=== PATIENT | female | born 1955 | race Caucasian/White ===

== ENCOUNTER 2017-06-03 15:58 | Inpatient (IN) | payer MEDICAID, OTHER ==
[2017-06-03 15:58] VITALS: BMI 26.0
[2017-06-03] MEDS ORDERED: Sodium Chloride 0.9% 1,000 ML IV STA (17:01)
--- NOTE | 2017-06-03 17:03 | ED PDOC ---
HPI: Abdomen Time Seen by Provider: 06/03/17 16:40 Chief Complaint (Nursing): Abdominal Pain Chief Complaint (Provider): Diarrhea History Per: Patient Additional Complaint(s): Pt reports nonbloody diarrhea and crampy abdominal pain X 2 days, may have eaten something bad. Denies fever, nausea, vomiting, urinary symptoms. Past Medical History Reviewed: Nursing Documentation, Vital Signs Vital Signs: Last Vital Signs Temp 98.1 F 06/05/17 08:17 Pulse 55 L 06/05/17 08:17 Resp 20 06/05/17 08:17 BP 117/68 06/05/17 08:17 Pulse Ox 99 06/05/17 08:17 - Medical History PMH: Gastritis, Chronic Kidney Disease - Surgical History Surgical History: Cholecystectomy - Family History Family History: States: Unknown Family Hx - Social History Current smoker - smoking cessation education provided: No Alcohol: None - Immunization History Hx Influenza Vaccination: No - Home Medications Home Medications: Ambulatory Orders Medication Instructions Recorded Acetaminophen [Tylenol 325mg tab] 650 mg PO Q6 PRN tab 06/05/17 Ciprofloxacin HCl [Cipro] 500 mg PO BID #14 tablet 06/05/17 Metronidazole [Flagyl] 500 mg PO TID #30 tablet 06/05/17 - Allergies Allergies/Adverse Reactions: Allergies Allergy/AdvReac Type Severity Reaction Status Date / Time No Known Allergies Allergy Verified 06/03/17 16:25 Review of Systems Constitutional: Negative for: Fever, Chills Cardiovascular: Negative for: Chest Pain, Palpitations Respiratory: Negative for: Cough, Shortness of Breath Gastrointestinal: Positive for: Abdominal Pain, Diarrhea. Negative for: Nausea , Vomiting, Constipation, Melena, Hematochezia, Hematemesis Genitourinary Female: Negative for: Dysuria, Hematuria, Vaginal Discharge, Vaginal Bleeding Musculoskeletal: Negative for: Back Pain Skin: Negative for: Rash, Lesions Neurological: Negative for: Headache, Dizziness Physical Exam - Reviewed Nursing Documentation Reviewed: Yes Vital Signs Reviewed: Yes - Physical Exam Appears: Positive for: Well, No Acute Distress Skin: Positive for: Normal Color, Warm, Dry Eye Exam: Positive for: Normal appearance, EOMI, PERRL Cardiovascular/Chest: Positive for: Regular Rate, Rhythm Respiratory: Positive for: Normal Breath Sounds Gastrointestinal/Abdominal: Positive for: Bowel Sounds, Soft, Tenderness (LUQ/ LLQ). Negative for: Distended, Guarding, Rebound Back: Positive for: Normal Inspection. Negative for: L CVA Tenderness, R CVA Tenderness Extremity: Positive for: Normal ROM Neurologic/Psych: Positive for: Alert, Oriented - Laboratory Results Result Diagrams: 06/04/17 06:15 06/04/17 06:15 - ECG Interpretation Of ECG: NSR @ 68, no ST-T changes. O2 Sat by Pulse Oximetry: 98 Pulse Ox Interpretation: Normal Medical Decision Making Medical Decision Makin yo female with abdominal cramping and diarrhea. - labs - EKG - CT abd/pelvis - IVF - Bentyl Accession No. 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 no. Patient Name: DMOINGA COTTON Pt. Address: [address] [place] [address] Med. Rec #: [id number] [place] [address]: Joanna COLVIN, Whitney Colon Pt CELL Order Location: [facility] : 1955 Female Age: 62 Order #: [id number] Reason for exam: L sided abd pain, diarrhea CT Scan ABD PELVIS IV CONTRAST ONLY Exam Date: 06/03/17 This imaging exam was performed at [facility] EXAM: CT Abdomen and Pelvis With Intravenous Contrast EXAM DATE/TIME: 06/03/2017 5:00 PM CLINICAL HISTORY: 62 years old, female; Pain; Abdominal pain; Localized; Left; Prior surgery; Surgery date: 6+ months; Surgery type: Gb removed; Additional info: L sided abd pain, diarrhea. Pain since yesterday TECHNIQUE: Axial computed tomography images of the abdomen and pelvis with intravenous contrast. All CT scans at this facility use one or more dose reduction techniques, viz.: automated exposure control; ma/kV adjustment per patient size (including targeted exams where dose is matched to indication; i.e. head); or iterative reconstruction technique. Coronal and sagittal reformatted images were created and reviewed. CONTRAST: 90 mL of omnipaque 300 administered intravenously. COMPARISON: There are no prior studies for comparison. FINDINGS: Lower thorax: Heart size is normal. There is a small hiatal hernia. There is dependent atelectasis at the lung bases. ABDOMEN: Liver: There is fatty infiltration of the liver. Gallbladder and bile ducts: Gallbladder is absent. There is prominence of the common duct. Pancreas: Pancreas is mildly atrophic. Spleen: There is a small low attenuation lesion in the spleen difficult to characterize.There is an accessory spleen in the left upper quadrant. Adrenals: unremarkable Kidneys and ureters: There are bilateral low-attenuation renal lesions too small to accurately characterize.There is no pelvocaliectasis or ureterectasis. Stomach and bowel: Stomach is incompletely distended. Rotation is normal. There is duodenal and proximal jejunal fold thickening. There is ileal wall thickening with wall and mucosal enhancement. There is only mild terminal ileal wall thickening. Appendix is unremarkable. There is mild cecal wall thickening. There is fatty infiltration of the ascending colonic wall. There is mild prominence of the transverse and descending colon morgan. There is sigmoid wall thickening. Appendix: See stomach and bowel PELVIS: Bladder: Bladder is almost completely empty. Reproductive: Uterus and adnexal structures are unremarkable. ABDOMEN and PELVIS: Intraperitoneal space: There is a moderate amount of free fluid in the pelvis. There is no free fluid in the upper abdomen.There is no free air. Bones/joints: There are scattered bone islands.There are degenerative changes in the osseus structures. Soft tissues: There is a small fat containing umbilical hernia. Vasculature: There are vascular calcifications. Lymph nodes: There is no pathologic adenopathy. IMPRESSION: Enterocolitis; pelvic ascites possibly due to to inflammatory bowel disease; prominent common duct status post cholecystectomy; fatty liver Additional nonemergent findings as described above. Dictated By: Jose Christensen MD, MD Dictated Date/Time: 06/03/171912 Signed By: Jose Christensen MD Date Signed: 1912 Transcribed By: YAJAIRA Transcribe Date/Time : 06/03/171912 DREAD/RUPERT Disposition - Clinical Impression Clinical Impression: Enterocolitis - Patient ED Disposition Is Patient to be Admitted: Yes - Disposition Disposition Time: 20:32 Condition: STABLE - Pt Status Changed To: Hospital Disposition Of: Inpatient - Admit Certification Admit to Inpatient:: After my assessment, the patient will require hospitalization for at least two midnights. This is because of the severity of symptoms shown, intensity of services needed, and/or the medical risk in this patient being treated as an outpatient. - POA Present On Arrival: None
[2017-06-03 17:37] LABS: BASO % 0.4 % (0.0-2.0); EOS # 0.2 K/uL (0.0-0.7); EOS % 1.5 % (0.0-4.0); HEMOGLOBIN 12.9 g/dL (12.0-16.0); LYMPH # 1.6 K/uL (1.0-4.3); LYMPH % 15.7 % (20.0-40.0); MEAN CELL VOLUME 82.2 fl (81.0-99.0); MEAN CORPUSCULAR HEMOGLOBIN 26.9 pg (27.0-31.0); MEAN CORPUSCULAR HGB CONC 32.8 g/dL (33.0-37.0); MEAN PLATELET VOLUME 7.6 fl (7.2-11.7); MONO # 0.7 K/uL (0.0-0.8); MONO % 6.3 % (0.0-10.0); NEUT % 76.1 % (50.0-75.0); NRBC % 0.1 % (0.0-0.0); RBC 4.81 Mil/uL (3.80-5.20); RED CELL DISTRIBUTION WIDTH 14.4 % (11.5-14.5); WHITE BLOOD COUNT 10.5 K/uL (4.8-10.8)
[2017-06-03 17:54] LABS: ALB/GLOB RATIO 1.1 (1.0-2.1); ALBUMIN 4.1 g/dL (3.5-5.0); ALT/SGPT 41 U/L (9-52); AST/SGOT 39 U/L (14-36); BLOOD UREA NITROGEN 11 mg/dl (7-17); CALCIUM 8.8 mg/dL (8.4-10.2); GFR AFRICAN-AMERICAN > 60; GFR NON-AFRICAN AMERICAN > 60; LIPASE 36 U/L (23-300)
[2017-06-03 18:03] LABS: PARTIAL THROMBOPLASTIN TIME 28.4 Seconds (25.6-37.1); PROTHROMBIN TIME 10.7 Seconds (9.8-13.1)
[2017-06-03 18:11] LABS: SQUAMOUS EPITHIAL 1 /hpf (0-5); URINE BILIRUBIN NEGATIVE (NEGATIVE); URINE BLOOD NEGATIVE (NEGATIVE); URINE CLARITY SLIGHTY-CLOUDY (Clear); URINE COLOR YELLOW (YELLOW); URINE GLUCOSE (UA) NEG (Normal); URINE LEUKOCYTE ESTERASE NEG Leu/uL (Negative); URINE PROTEIN NEGATIVE (NEGATIVE); URINE UROBILINOGEN 0.2-1.0 mg/dL (0.2-1.0)
[2017-06-03] MEDS ORDERED: Iohexol 300 100 ML IJ ONE (18:17)
--- NOTE | 2017-06-03 19:13 | CT ---
EXAM: CT Abdomen and Pelvis With Intravenous Contrast EXAM DATE/TIME: 06/03/2017 5:00 PM CLINICAL HISTORY: 62 years old, female; Pain; Abdominal pain; Localized; Left; Prior surgery; Surgery date: 6+ months; Surgery type: Gb removed; Additional info: L sided abd pain, diarrhea. Pain since yesterday TECHNIQUE: Axial computed tomography images of the abdomen and pelvis with intravenous contrast. All CT scans at this facility use one or more dose reduction techniques, viz.: automated exposure control; ma/kV adjustment per patient size (including targeted exams where dose is matched to indication; i.e. head); or iterative reconstruction technique. Coronal and sagittal reformatted images were created and reviewed. CONTRAST: 90 mL of omnipaque 300 administered intravenously. COMPARISON: There are no prior studies for comparison. FINDINGS: Lower thorax: Heart size is normal. There is a small hiatal hernia. There is dependent atelectasis at the lung bases. ABDOMEN: Liver: There is fatty infiltration of the liver. Gallbladder and bile ducts: Gallbladder is absent. There is prominence of the common duct. Pancreas: Pancreas is mildly atrophic. Spleen: There is a small low attenuation lesion in the spleen difficult to characterize.There is an accessory spleen in the left upper quadrant. Adrenals: unremarkable Kidneys and ureters: There are bilateral low-attenuation renal lesions too small to accurately characterize.There is no pelvocaliectasis or ureterectasis. Stomach and bowel: Stomach is incompletely distended. Rotation is normal. There is duodenal and proximal jejunal fold thickening. There is ileal wall thickening with wall and mucosal enhancement. There is only mild terminal ileal wall thickening. Appendix is unremarkable. There is mild cecal wall thickening. There is fatty infiltration of the ascending colonic wall. There is mild prominence of the transverse and descending colon morgan. There is sigmoid wall thickening. Appendix: See stomach and bowel PELVIS: Bladder: Bladder is almost completely empty. Reproductive: Uterus and adnexal structures are unremarkable. ABDOMEN and PELVIS: Intraperitoneal space: There is a moderate amount of free fluid in the pelvis. There is no free fluid in the upper abdomen.There is no free air. Bones/joints: There are scattered bone islands.There are degenerative changes in the osseus structures. Soft tissues: There is a small fat containing umbilical hernia. Vasculature: There are vascular calcifications. Lymph nodes: There is no pathologic adenopathy. IMPRESSION: Enterocolitis; pelvic ascites possibly due to to inflammatory bowel disease; prominent common duct status post cholecystectomy; fatty liver Additional nonemergent findings as described above.
[2017-06-03] MEDS ORDERED: Ciprofloxacin 400mg/200ml D5W 400 MG/200 ML BAG IV STA (19:44)
[2017-06-03] MEDS ORDERED: Oxycodone/Acetaminophen 5/325 mg Tab PO PRN (20:57)
[2017-06-03] MEDS ORDERED: metroNIDAZOLE 500mg/100ml NS 100 ML IVPB SCH (21:00)
--- NOTE | 2017-06-03 21:06 | CP.PCM.HP ---
History of Present Illness - History of Present Illness History of Present Illness: CC: abd pain, diarrhea HPI: 62 y/o female with gastritis who comes in with 2 days of abdominal pain and now several episodes of nb diarrhea today. Patient denies any unusual food exposure or travel. No close contacts have been sick. She has not been on any abx. 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 Denies f/c. Denies n/v. MHx: gastritis SHx: Cholecystectomy Allergies: NKDA Medications: Per med rec Family Hx: Reviewed, no relevant findings Social Hx: Lives with family, no tobacco, no EtOH use Surrogate: Son, contract info in chart Present on Admission - Present on Admission Any Indicators Present on Admission: No Past Patient History - Past Medical History & Family History Past Medical History?: Yes - Past Social History Alcohol: None - CARDIAC Hx Hypercholesterolemia: Yes - PULMONARY Hx Respiratory Disorders: No - NEUROLOGICAL Hx Neurological Disorder: No - HEENT Hx HEENT Problems: No - RENAL Hx Chronic Kidney Disease: Yes - ENDOCRINE/METABOLIC Hx Endocrine Disorders: No - HEMATOLOGICAL/ONCOLOGICAL Hx Blood Disorders: No - INTEGUMENTARY Hx Dermatological Problems: No - MUSCULOSKELETAL/RHEUMATOLOGICAL Hx Musculoskeletal Disorders: No - GASTROINTESTINAL Hx Gastritis: Yes - GENITOURINARY/GYNECOLOGICAL Hx Genitourinary Disorders: Yes Other/Comment: HX: CYST LEFT OVARY - PSYCHIATRIC Hx Psychophysiologic Disorder: No Hx Substance Use: No - SURGICAL HISTORY Hx Cholecystectomy: Yes - ANESTHESIA Hx Anesthesia: Yes Hx Anesthesia Reactions: No Hx Malignant Hyperthermia: No Meds Allergies/Adverse Reactions: Allergies Allergy/AdvReac Type Severity Reaction Status Date / Time No Known Allergies Allergy Verified 06/03/17 16:25 Physical Exam - Constitutional Appears: No Acute Distress - Head Exam Head Exam: ATRAUMATIC, NORMOCEPHALIC - Eye Exam Eye Exam: EOMI, PERRL - ENT Exam ENT Exam: Mucous Membranes Moist - Neck Exam Neck exam: Positive for: Full Rom - Respiratory Exam Respiratory Exam: Clear to Auscultation Bilateral, NORMAL BREATHING PATTERN - Cardiovascular Exam Cardiovascular Exam: REGULAR RHYTHM, +S1, +S2 - GI/Abdominal Exam GI & Abdominal Exam: Normal Bowel Sounds, Soft, Tenderness - Extremities Exam Extremities exam: Positive for: full ROM, normal inspection - Neurological Exam Neurological exam: Alert, CN II-XII Intact, Oriented x3 - Psychiatric Exam Psychiatric exam: Normal Affect, Normal Mood - Skin Skin Exam: Dry, Warm Results - Vital Signs Recent Vital Signs: Last Vital Signs Temp 98.2 F 06/03/17 16:26 Pulse 77 06/03/17 16:26 Resp 16 06/03/17 16:26 BP 133/62 06/03/17 16:26 Pulse Ox 98 06/03/17 20:32 - Labs Result Diagrams: 06/03/17 17:31 06/03/17 17:31 Labs: Laboratory Results - last 24 hr 06/03/17 06/03/17 06/03/17 17:31 17:31 17:31 WBC 10.5 RBC 4.81 Hgb 12.9 Hct 39.5 MCV 82.2 MCH 26.9 L MCHC 32.8 L RDW 14.4 Plt Count 330 MPV 7.6 Neut % (Auto) 76.1 H Lymph % (Auto) 15.7 L [place] % (Auto) 6.3 Eos % (Auto) 1.5 Baso % (Auto) 0.4 Neut # (Auto) 8.0 H Lymph # (Auto) 1.6 [place] # (Auto) 0.7 Eos # (Auto) 0.2 Baso # (Auto) 0.0 PT 10.7 INR 1.0 APTT 28.4 Sodium 142 Potassium 3.8 Chloride 106 Carbon Dioxide 23 Anion Gap 17 BUN 11 Creatinine 0.5 L Est GFR ( Amer) > 60 Est GFR (Non-Af Amer) > 60 Random Glucose 87 Calcium 8.8 Total Bilirubin 0.5 AST 39 H ALT 41 Alkaline Phosphatase 74 Total Protein 7.6 Albumin 4.1 Globulin 3.6 Albumin/Globulin Ratio 1.1 Lipase 36 Urine Color Urine Clarity Urine pH Ur Specific [place] Urine Protein Urine Glucose (UA) Urine Ketones Urine Blood Urine Nitrate Urine Bilirubin Urine Urobilinogen Ur Leukocyte Esterase Urine RBC (Auto) Urine Microscopic WBC Ur Squamous Epith Cells 06/03/17 17:58 WBC RBC Hgb Hct MCV MCH MCHC RDW Plt Count MPV Neut % (Auto) Lymph % (Auto) [place] % (Auto) Eos % (Auto) Baso % (Auto) Neut # (Auto) Lymph # (Auto) [place] # (Auto) Eos # (Auto) Baso # (Auto) PT INR APTT Sodium Potassium Chloride Carbon Dioxide Anion Gap BUN Creatinine Est GFR ( Amer) Est GFR (Non-Af Amer) Random Glucose Calcium Total Bilirubin AST ALT Alkaline Phosphatase Total Protein Albumin Globulin Albumin/Globulin Ratio Lipase Urine Color Yellow Urine Clarity Slighty-cloudy Urine pH 5.0 Ur Specific [place] 1.026 Urine Protein Negative Urine Glucose (UA) Neg Urine Ketones Negative Urine Blood Negative Urine Nitrate Negative Urine Bilirubin Negative Urine Urobilinogen 0.2-1.0 Ur Leukocyte Esterase Neg Urine RBC (Auto) 3 Urine Microscopic WBC 1 Ur Squamous Epith Cells 1 - Imaging and Cardiology CT scan - abdomen Status: Image reviewed by me, Report reviewed by me (enterocolitis) Assessment & Plan (1) Enterocolitis Assessment and Plan: 62 y/o female who works in this hospital presenting with abd pain and diarrhea. -Clear liquids -Continue cipro/flagyl IV -Would get C diff given that patient has exposure here in the hospital -PRN pain medication -SCD for dvt ppx Status: Acute
[2017-06-03] MEDS ORDERED: Ciprofloxacin 400mg/200ml D5W 400 MG/200 ML BAG IVPB ONE (21:38)
[2017-06-03] MEDS: metroNIDAZOLE 500mg/100ml NS 100 ML IVPB SCH (22:48)
[2017-06-04] MEDS: metroNIDAZOLE 500mg/100ml NS 100 ML IVPB SCH ×3 (06:18→22:57)
[2017-06-04 06:45] LABS: BASO % 0.1 % (0.0-2.0); EOS # 0.1 K/uL (0.0-0.7); EOS % 1.7 % (0.0-4.0); HEMOGLOBIN 11.5 g/dL (12.0-16.0); LYMPH % 34.5 % (20.0-40.0); MEAN CORPUSCULAR HEMOGLOBIN 27.2 pg (27.0-31.0); MEAN CORPUSCULAR HGB CONC 33.5 g/dL (33.0-37.0); MEAN PLATELET VOLUME 7.6 fl (7.2-11.7); MONO # 0.4 K/uL (0.0-0.8); MONO % 7.2 % (0.0-10.0); NEUT # 3.3 K/uL (1.8-7.0); NEUT % 56.5 % (50.0-75.0); NRBC % 0.1 % (0.0-0.0); RBC 4.23 Mil/uL (3.80-5.20); RED CELL DISTRIBUTION WIDTH 14.4 % (11.5-14.5); WHITE BLOOD COUNT 5.9 K/uL (4.8-10.8)
[2017-06-04 07:00] LABS: BLOOD UREA NITROGEN 7 mg/dl (7-17); GFR AFRICAN-AMERICAN > 60; GFR NON-AFRICAN AMERICAN > 60
[2017-06-04] MEDS: Pantoprazole 40 mg EC Tab PO SCH (08:56)
--- NOTE | 2017-06-04 09:52 | CARD ---
APPROVED REPORT EKG Measurement Heart [id number] <Conclusion> Normal sinus rhythm Normal ECG
[2017-06-04] MEDS: Ciprofloxacin 400mg/200ml D5W 400 MG/200 ML BAG IVPB SCH ×2 (10:30→20:51)
--- NOTE | 2017-06-04 11:18 | CP.PCM.PN ---
Subjective - Date & Time of Evaluation Date of Evaluation: 06/04/17 Time of Evaluation: 11:00 - Subjective Subjective: No fever still with diarrhea, worse after she had some Liquid diet 4x diarrhea this am , liquid + lower abd pain denies N/V no CP no SOB Objective - Vital Signs/Intake and Output Vital Signs (last 24 hours): Temp Pulse Resp BP Pulse Ox 98.4 F 87 18 95/55 L 98 06/04/17 08:05 06/04/17 08:05 06/04/17 08:05 06/04/17 08:05 06/04/17 08:05 - Medications Medications: Current Medications Acetaminophen (Tylenol 325mg Tab) 650 mg PO Q6 PRN PRN Reason: Pain, Mild (1-3) Acetaminophen (Tylenol 325mg Tab) 650 mg PO Q6 PRN PRN Reason: Fever >100.4 F Ciprofloxacin (Cipro 400mg/200ml Dsw) 400 mg in 200 mls @ 200 mls/hr IVPB Q12 ANNALISA PRN Reason: Protocol Last Admin: 06/04/17 10:30 Dose: 200 mls/hr Metronidazole (Flagyl 500mg/100ml Ns) 100 mls @ 100 mls/hr IVPB Q8H ANNALISA PRN Reason: Protocol Last Admin: 06/04/17 06:18 Dose: 100 mls/hr Morphine Sulfate (Morphine) 1 mg IVP Q4 PRN PRN Reason: Pain, severe (8-10) Oxycodone/Acetaminophen (Percocet 5/325 Mg Tab) 1 tab PO Q4 PRN PRN Reason: Pain, moderate (4-7) Stop: 06/06/17 20:58 Pantoprazole Sodium (Protonix Ec Tab) 40 mg PO DAILY [facility] Last Admin: 06/04/17 08:56 Dose: 40 mg - Labs Labs: 06/04/17 06:15 06/04/17 06:15 PT 10.7 Seconds (9.8-13.1) 06/03/17 17:31 INR 1.0 (0.9-1.2) 06/03/17 17:31 APTT 28.4 Seconds (25.6-37.1) 06/03/17 17:31 - Constitutional Appears: No Acute Distress - Head Exam Head Exam: ATRAUMATIC, NORMAL INSPECTION, NORMOCEPHALIC - Eye Exam Eye Exam: EOMI, Normal appearance, PERRL Pupil Exam: NORMAL ACCOMODATION - ENT Exam ENT Exam: Mucous Membranes Moist, Normal External Ear Exam - Neck Exam Neck Exam: Full ROM. absent: Meningismus - Respiratory Exam Respiratory Exam: NORMAL BREATHING PATTERN. absent: Respiratory Distress - Cardiovascular Exam Cardiovascular Exam: REGULAR RHYTHM, +S1, +S2 - GI/Abdominal Exam GI & Abdominal Exam: Soft, Normal Bowel Sounds. absent: Tenderness - Extremities Exam Extremities Exam: Full ROM, Normal Capillary Refill. absent: Calf Tenderness, Pedal Edema - Back Exam Back Exam: Full ROM. absent: CVA tenderness (L), CVA tenderness (R) - Neurological Exam Neurological Exam: Alert, Awake, CN II-XII Intact, Oriented x3 Neuro motor strength exam: Left Upper Extremity: 5, Right Upper Extremity: 5, Left Lower Extremity: 5, Right Lower Extremity: 5 - Psychiatric Exam Psychiatric exam: Normal Affect, Normal Mood - Skin Skin Exam: Dry, Normal Color, Warm Assessment and Plan (1) Enterocolitis Status: Acute - Assessment and Plan (Free Text) Assessment: 1. Acute Enterocolitis - still with diarrhea - cont IVF hydration - cont IV Cipro and Flagyl -Stool work up - c/s, WBC, C diff, O/P 2. DVT proph - Lovenox
[2017-06-04] MEDS: Lactated Ringer's 1,000 ML IV SCH ×2 (14:19→21:30)
[2017-06-05] MEDS: Lactated Ringer's 1,000 ML IV SCH (05:42)
[2017-06-05] MEDS: metroNIDAZOLE 500mg/100ml NS 100 ML IVPB SCH (06:45)
[2017-06-05 08:18] VITALS: BP 117/68; PULSE 55; RESP 20; TEMP 98.1
[2017-06-05] MEDS: Ciprofloxacin 400mg/200ml D5W 400 MG/200 ML BAG IVPB SCH (09:00)
[2017-06-05] MEDS: Pantoprazole 40 mg EC Tab PO SCH (09:01)
--- NOTE | 2017-06-05 15:01 | CP.PCM.DIS ---
Provider - Provider Date of Admission: 06/03/17 20:32 Attending physician: Jared Richardson MD Time Spent in preparation of Discharge (in minutes): 30 Diagnosis - Discharge Diagnosis (1) Enterocolitis Status: Acute Hospital Course - Lab Results Lab Results: Micro Results 06/04/17 10:50 Stool Ova and Parasite Concentrate Exam - Final Most Recent Lab Values WBC 5.9 K/uL (4.8-10.8) 06/04/17 06:15 RBC 4.23 Mil/uL (3.80-5.20) 06/04/17 06:15 Hgb 11.5 g/dL (12.0-16.0) L 06/04/17 06:15 Hct 34.3 % (34.0-47.0) 06/04/17 06:15 MCV 81.0 fl (81.0-99.0) 06/04/17 06:15 MCH 27.2 pg (27.0-31.0) 06/04/17 06:15 MCHC 33.5 g/dL (33.0-37.0) 06/04/17 06:15 RDW 14.4 % (11.5-14.5) 06/04/17 06:15 Plt Count 268 K/uL (130-400) 06/04/17 06:15 MPV 7.6 fl (7.2-11.7) 06/04/17 06:15 Neut % (Auto) 56.5 % (50.0-75.0) 06/04/17 06:15 Lymph % (Auto) 34.5 % (20.0-40.0) 06/04/17 06:15 Real % (Auto) 7.2 % (0.0-10.0) 06/04/17 06:15 Eos % (Auto) 1.7 % (0.0-4.0) 06/04/17 06:15 Baso % (Auto) 0.1 % (0.0-2.0) 06/04/17 06:15 Neut # (Auto) 3.3 K/uL (1.8-7.0) 06/04/17 06:15 Lymph # (Auto) 2.0 K/uL (1.0-4.3) 06/04/17 06:15 Real # (Auto) 0.4 K/uL (0.0-0.8) 06/04/17 06:15 Eos # (Auto) 0.1 K/uL (0.0-0.7) 06/04/17 06:15 Baso # (Auto) 0.0 K/uL (0.0-0.2) 06/04/17 06:15 PT 10.7 Seconds (9.8-13.1) 06/03/17 17:31 INR 1.0 (0.9-1.2) 06/03/17 17:31 APTT 28.4 Seconds (25.6-37.1) 06/03/17 17:31 Sodium 143 mmol/l (132-148) 06/04/17 06:15 Potassium 3.7 MMOL/L (3.6-5.0) 06/04/17 06:15 Chloride 109 mmol/L (98-107) H 06/04/17 06:15 Carbon Dioxide 26 mmol/L (22-30) 06/04/17 06:15 Anion Gap 12 (10-20) 06/04/17 06:15 BUN 7 mg/dl (7-17) 06/04/17 06:15 Creatinine 0.6 mg/dl (0.7-1.2) L 06/04/17 06:15 Est GFR ( Amer) > 60 06/04/17 06:15 Est GFR (Non-Af Amer) > 60 06/04/17 06:15 Random Glucose 91 mg/dL (65-105) 06/04/17 06:15 Calcium 8.0 mg/dL (8.4-10.2) L 06/04/17 06:15 Total Bilirubin 0.5 mg/dl (0.2-1.3) 06/03/17 17:31 AST 39 U/L (14-36) H 06/03/17 17:31 ALT 41 U/L (9-52) 06/03/17 17:31 Alkaline Phosphatase 74 U/L (38-126) 06/03/17 17:31 Total Protein 7.6 G/DL (6.3-8.2) 06/03/17 17:31 Albumin 4.1 g/dL (3.5-5.0) 06/03/17 17:31 Globulin 3.6 gm/dL (2.2-3.9) 06/03/17 17:31 Albumin/Globulin Ratio 1.1 (1.0-2.1) 06/03/17 17:31 Lipase 36 U/L (23-300) 06/03/17 17:31 Urine Color Yellow (YELLOW) 06/03/17 17:58 Urine Clarity Slighty-cloudy (Clear) 06/03/17 17:58 Urine pH 5.0 (5.0-8.0) 06/03/17 17:58 Ur Specific [place] 1.026 (1.003-1.030) 06/03/17 17:58 Urine Protein Negative mg/dL (NEGATIVE) 06/03/17 17:58 Urine Glucose (UA) Neg mg/dL (Normal) 06/03/17 17:58 Urine Ketones Negative mg/dL (NEGATIVE) 06/03/17 17:58 Urine Blood Negative (NEGATIVE) 06/03/17 17:58 Urine Nitrate Negative (NEGATIVE) 06/03/17 17:58 Urine Bilirubin Negative (NEGATIVE) 06/03/17 17:58 Urine Urobilinogen 0.2-1.0 mg/dL (0.2-1.0) 06/03/17 17:58 Ur Leukocyte Esterase Neg [place]/uL (Negative) 06/03/17 17:58 Urine RBC (Auto) 3 /hpf (0-3) 06/03/17 17:58 Urine Microscopic WBC 1 /hpf (0-5) 06/03/17 17:58 Ur Squamous Epith Cells 1 /hpf (0-5) 06/03/17 17:58 Stool Leukocytes, Qual Positive (NEGATIVE) H 06/04/17 10:50 C. difficile Ag & Toxin Negative (NEGATIVE) 06/04/17 10:50 - Hospital Course Hospital Course: 62 y/o lady , no significant PMH, came in bec of fever, chills, abdominal pain , N/V and multiple episodes of watery diarrhea. CT of abdomen : Enterocolitis. Pt was admitted for IVF hydration and IV antibiotics. Diet gradually introduced. Fever , chills and abdominal pain resolved Diarrhea resolved and pt tolerated PO diet . 1. Acute Enterocolitis -IVF hydration -received IV Cipro and Flagyl -Stool work up - C diff negative, Stool WBC + , Ova and Parasites : nefgative Stool c/s : pending - Pts symptoms now improved- abd pain esolved, diarrhea now down to once today and she is tolerating PO diet - will d/c home on PO Cipro and Flagyl x 1 more week 2. DVT proph - Lovenox Discharge Exam - Head Exam Head Exam: ATRAUMATIC, NORMAL INSPECTION, NORMOCEPHALIC - Eye Exam Eye Exam: EOMI, Normal appearance, PERRL Pupil Exam: NORMAL ACCOMODATION - ENT Exam ENT Exam: Mucous Membranes Moist, Normal External Ear Exam - Neck Exam Neck exam: Full Rom - Respiratory Exam Respiratory Exam: NORMAL BREATHING PATTERN. absent: Respiratory Distress - Cardiovascular Exam Cardiovascular Exam: REGULAR RHYTHM, +S1, +S2 - GI/Abdominal Exam GI & Abdominal Exam: Normal Bowel Sounds, Soft. absent: Tenderness - Extremities Exam Extremities exam: full ROM, normal capillary refill, normal inspection, pedal pulses present - Back Exam Back exam: FULL ROM. absent: CVA tenderness (L), CVA tenderness (R) - Neurological Exam Neurological exam: Alert, CN II-XII Intact, Normal Gait, Oriented x3, Reflexes Normal - Psychiatric Exam Psychiatric exam: Normal Affect, Normal Mood - Skin Skin Exam: Dry, Normal Color, Warm Discharge Plan - Discharge Medications Prescriptions: Ciprofloxacin HCl [Cipro] 500 mg PO BID #14 tablet Metronidazole [Flagyl] 500 mg PO TID #30 tablet - Follow Up Plan Condition: GOOD Disposition: HOME/ ROUTINE Instructions: Diarrhea in Adolescents and Adults, Acute Abdomen (Belly Pain), Adult (DC) Additional Instructions: appt with PMD in 1 wk Referrals: Karon Maynard MD [Family Provider] -
[2017-06-06 11:25] VITALS: O2SAT 98
== END 2017-06-05 15:30 | disposition home or self-care (01) | DRG 813 ==
LOC: H.ER 15:58 → H.ERHOLD 20:32 → H.MEDSURG1 22:05
PROVIDERS: ADMIT Internal Medicine; ATTEND Internal Medicine
DX: K52.9 Noninfective gastroenteritis and colitis, unspecified (principal); N18.9 Chronic kidney disease, unspecified; K76.0 Fatty (change of) liver, not elsewhere classified; E78.00 Pure hypercholesterolemia, unspecified; K29.70 Gastritis, unspecified, without bleeding